=== PATIENT | female | born 1985 ===

== ENCOUNTER 2021-01-20 18:14 | Emergency (ER) | payer MEDICAID | END 2021-01-20 18:40 | disposition left against medical advice (07) | LOC: ED 18:14 | DX: R10.9 Unspecified abdominal pain (principal); Z53.21 Procedure and treatment not carried out due to patient leaving prior to being seen by health care provider ==

== ENCOUNTER 2021-01-23 12:10 | Emergency (ER) | payer MEDICAID ==
[2021-01-23] MEDS ORDERED: SODIUM CHLORIDE 0.9% 1000 ML IV SOLN IV ONE (12:35)
[2021-01-23] MEDS ORDERED: MORPHINE 4 MG/1 ML INJ IV ONE (12:36)
[2021-01-23] MEDS ORDERED: ONDANSETRON 4 MG/2 ML INJ IV ONE (12:36)
[2021-01-23] MEDS ORDERED: ACETAMINOPHEN 325 MG TAB PO ONE (12:36)
[2021-01-23] MEDS ORDERED: PIPERACILLIN/TAZOBACTAM 3.375 3.375 GM/50 ML BAG IV ONE (12:36)
--- NOTE | 2021-01-23 12:40 | Emergency Department Report ---
ED General Adult HPI - General Chief complaint: Dyspnea/Respdistress Stated complaint: YUSUF, VOMITING BLOOD Time Seen by Provider: 01/23/21 12:27 Source: patient Mode of arrival: Ambulatory Limitations: No Limitations - History of Present Illness Initial comments: Patient is a 35 years old female with no significant past medical history. Patient presented to the ER complaining of fever, white upper quadrant and right lower chest pain for the last 4 days. Patient is also complaining of cough, shortness of breath. Patient stated that she was COVID-19 positive in September. Patient also complaining of nausea, vomiting and diarrhea. Sepsis protocol immediately initiated and patient started on normal saline, Zosyn and Tylenol. Severity scale (0 -10): 10 - Related Data Allergies Allergy/AdvReac Type Severity Reaction Status Date / Time No Known Allergies Allergy Unverified 01/23/21 12:15 ED Review of Systems ROS: Stated complaint: YUSUF, VOMITING BLOOD Other details as noted in HPI Comment: All other systems reviewed and negative Constitutional: chills, fever Respiratory: cough, shortness of breath Cardiovascular: palpitations. denies: chest pain Gastrointestinal: abdominal pain, nausea, vomiting, diarrhea Musculoskeletal: denies: back pain Neurological: denies: headache ED Past Medical Hx - Past Medical History Previous Medical History?: No - Surgical History Past Surgical History?: Yes Additional Surgical History: rib surgery ED Physical Exam - General Limitations: No Limitations General appearance: alert, in distress (Moderate distress secondary to pain.) - Head Head exam: Present: atraumatic, normocephalic, normal inspection - Eye Eye exam: Present: normal appearance - ENT ENT exam: Present: mucous membranes dry - Neck Neck exam: Present: normal inspection, full ROM. Absent: tenderness, meningismus - Respiratory Respiratory exam: Present: normal lung sounds bilaterally - Cardiovascular Cardiovascular Exam: Present: tachycardia - GI/Abdominal GI/Abdominal exam: Present: soft, normal bowel sounds. Absent: distended, tenderness, guarding, rebound, rigid, organomegaly, mass, bruit, pulsatile mass, hernia - Extremities Exam Extremities exam: Present: normal inspection, full ROM, normal capillary refill. Absent: tenderness, pedal edema, joint swelling, calf tenderness - Back Exam Back exam: Present: normal inspection, full ROM. Absent: CVA tenderness (R), CVA tenderness (L) - Neurological Exam Neurological exam: Present: alert, oriented X3, CN II-XII intact - Psychiatric Psychiatric exam: Present: normal mood - Skin Skin exam: Present: warm, dry, intact, normal color ED Course Vital Signs 01/23/21 01/23/21 01/23/21 12:17 13:44 14:00 Temperature 101.2 F H Pulse Rate 110 H 95 H Respiratory 20 33 H Rate Blood Pressure 122/80 Blood Pressure 121/80 [Right] O2 Sat by Pulse 100 98 96 Oximetry 01/23/21 01/23/21 01/23/21 15:00 15:54 16:00 Temperature 98.7 F Pulse Rate 88 88 Respiratory 25 H 25 H Rate Blood Pressure 122/80 126/82 Blood Pressure [Right] O2 Sat by Pulse 97 97 Oximetry ED Medical Decision Making - Lab Data Result diagrams: 01/23/21 12:50 01/23/21 12:50 - Radiology Data Radiology results: report reviewed - Medical Decision Making Patient is a 35 years old female with no significant past medical history. Patient presented to the ER complaining of fever, white upper quadrant and right lower chest pain for the last 4 days. Patient is also complaining of cough, shortness of breath. Patient stated that she was COVID-19 positive in September. Patient also complaining of nausea, vomiting and diarrhea. Sepsis protocol immediately initiated and patient started on normal saline, Zosyn and Tylenol. Labs reviewed and showed mild leukocytosis. CT abdomen and pelvis is unremarkable. Chest x-ray is negative for acute finding. Urine is clear. Patient stated that she is feeling much better. No nausea or vomiting. Patient strongly advised to follow-up with her primary care physician in the next 2 to 3 days and to return to the ER if she develop any new symptoms. Critical care attestation.: If time is entered above; I have spent that time in minutes in the direct care of this critically ill patient, excluding procedure time. ED Disposition Clinical Impression: Acute abdominal pain, Nausea and vomiting, Diarrhea, Fever Disposition: TO HOME OR SELFCARE Is pt being admited?: No Condition: Stable Instructions: Nausea and Vomiting, Adult, [id number], Fever, Adult Referrals: PRIMARY CARE, [Primary Care Provider] - 3-5 Days [facility] [Provider Group] - 3-5 Days
--- NOTE | 2021-01-23 13:04 | XRay Report ---
CHEST 1 VIEW INDICATION: SEPSIS. COMPARISON: None FINDINGS: Support devices: None. Heart: Within normal limits. Lungs/Pleura: No acute air space or interstitial disease. Additional findings: Internally fixated right rib fractures are noted. IMPRESSION: No acute findings. Signer Name: Camilo Delgado Jr, MD Signed: 01/23/2021 1:00 PM Workstation Name: [id number]
[2021-01-23 13:14] LABS: Basophils % (Auto) 0.3 % (0.0-1.8); Eosinophils % (Auto) 0.1 % (0.0-4.3); Hematocrit 37.9 % (30.3-42.9); Hemoglobin 12.5 gm/dl (10.1-14.3); Lymphocytes # (Auto) 0.8 K/mm3 (1.2-5.4); Lymphocytes % (Auto) 6.3 % (13.4-35.0); Mean Corpuscular HGB Conc 33 % (30-34); Mean Corpuscular Volume 71 fl (79-97); Monocytes # (Auto) 1.1 K/mm3 (0.0-0.8); Monocytes % (Auto) 8.7 % (0.0-7.3); Platelet Count 210 K/mm3 (140-440); Red Blood Count 5.34 M/mm3 (3.65-5.03)
[2021-01-23 13:28] LABS: Alanine Aminotransferase 6 units/L (7-56); Albumin 4.1 g/dL (3.9-5); Blood Urea Nitrogen 5 mg/dL (7-17); Hemolysis Index 5
[2021-01-23 13:34] LABS: BUN/Creatinine Ratio 8
[2021-01-23] MEDS ORDERED: METOCLOPRAMIDE 10 MG/2 ML INJ IV ONE (15:45)
--- NOTE | 2021-01-23 16:01 | Cat Scan Report ---
CT ABDOMEN AND PELVIS WITH CONTRAST HISTORY: Abdominal pain COMPARISON: None TECHNIQUE: Routine abdominal and pelvic CT exam performed following intravenous contrast administrat ion.. All CT scans at this location are performed using CT dose reduction for ALARA by means of autom ated exposure control. FINDINGS: CT ABDOMEN: Lung Bases: No significant abnormality. Liver: No significant abnormality. Biliary: No significant abnormality. Spleen: No significant abnormality. Unenlarged. Pancreas: No significant abnormality. Adrenals: No significant abnormality. Kidneys: No significant abnormality. Lymphatics: No lymphadenopathy. Vasculature: No significant abnormality. Bowel/Peritoneum: No significant abnormality. No free air. No free fluid. Normal appendix. CT PELVIC: : No significant abnormality. Lymphatics: No lymphadenopathy. Osseous Structures: No aggressive appearing osseous lesions. Additional Findings: None IMPRESSION: 1. No significant abnormality. Signer Name: Jesus Sahu MD Signed: 01/23/2021 3:56 PM Workstation Name: [id number]
[2021-01-23 16:34] VITALS: BP 126/82
[2021-01-23 16:53] LABS: Bilirubin,Urine NEG (Negative); Blood,Urine NEG (Negative); Color,Urine Yellow (Yellow); Mucus,Urine FEW /HPF; Protein,Urine <15 mg/dL mg/dL (Negative); Urobilinogen,Urine < 2.0 mg/dL (<2.0)
== END 2021-01-23 18:00 | disposition home or self-care (01) ==
LOC: ED 12:10
DX: R10.11 Right upper quadrant pain (principal); R11.2 Nausea with vomiting, unspecified; R19.7 Diarrhea, unspecified; R50.9 Fever, unspecified; Z98.890 Other specified postprocedural states
CPT/HCPCS: 36415; 71045; 74177; 80053; 81001; 82140; 84703; 85025; 87040; 96365; 96375; 99284; J2270; J2405; J2543; J7030; Q9967

== ENCOUNTER 2021-11-19 09:11 | Emergency (ER) | payer SELFPAY ==
[2021-11-19 10:13] VITALS: BP 119/72
== END 2021-11-19 11:50 | disposition left against medical advice (07) ==
LOC: ED 09:11
DX: O26.891 Other specified pregnancy related conditions, first trimester (principal); E86.0 Dehydration; Z53.21 Procedure and treatment not carried out due to patient leaving prior to being seen by health care provider; Z3A.01 Less than 8 weeks gestation of pregnancy